=== PATIENT | male | born 1955 | race Caucasian/White ===

== ENCOUNTER 2020-05-10 14:05 | Emergency (ER) | payer SELFPAY ==
[~2020-05-10] VITALS: Ht 177.8 cm; Wt 78.5 kg
[2020-05-10 14:32] VITALS: Ht 177.8 cm; Wt 78.5 kg
[2020-05-10 16:27] VITALS: BP 101/54
== END 2020-05-10 16:27 | disposition home or self-care (01) ==
LOC: ED 14:05
DX: N45.3 Epididymo-orchitis (principal); N43.3 Hydrocele, unspecified
CPT/HCPCS: 82962; Q0092